=== PATIENT | female | born 1950 | race Caucasian/White ===

== ENCOUNTER 2024-03-07 16:43 | Outpatient (CLI) | payer MEDICARE, SELFPAY ==
[2024-03-07 17:20] LABS: Alanine Aminotransferase 23 U/L (6-35); Albumin Level 4.5 g/dL (3.5-5.1); Alkaline Phosphatase 81 U/L (38-126); Aspartate Amino Transferase 30 U/L (14-36)
[2024-03-07 17:54] LABS: Thyroid Stimulating Hormone Reflex 0.743 uIU/mL (0.465-4.68)
--- OUTSIDE RECORDS SUMMARY | 2024-03-09 03:22 | XMS_ITS | CONTINUITY OF CARE DOCUMENT ---
Author Name joselefty, joselefty Address Unknown Organization [facility] Address [address] [place] [address] Phone [phone] Care Team Providers Care Etl Data Architect Name Role Phone Mack ROBLES, Christiano Unavailable PRO PIERRE MD Unavailable PRO PIERRE MD Unavailable PROBLEMS Condition Status Date Provider Notes Snoring active Christiano Giron MD Shortness of breath (SOB) active Christiano berkowitz MD Obesity active Christiano Giron MD Hyperlipidemia active Christiano Giron MD Chest pain active Christiano Giron MD ENCOUNTERS Date Type Provider Location Encounter Diag nosis - In-person encounter Office Visit Christiano Giron MD [facility] - In-person encounter Office Visit Christiano Giron MD [facility] - In-person encounter Office Visit Christiano Giron MD [facility] - In-person encounter Office Visit Christiano Giron MD [facility] Snoring - In-person encounter Office Visit Christiano Giron MD [facility] - In-person encounter Office Visit Christiano Giron MD [facility] Shortness of breath (SOB) - In-person encounter Office Visit Christiano Giron MD [facility] - In-person encounter Office Visit Christiano Giron MD [facility] Chest painHyperlipidemiaObesity VITAL SIGNS Date Observation Value Provider Body Mass Index (Ratio) 37.67 kg/m2 Tyrell Giron MD blood pressure, cuff size regular [facility] blood pressure, diastolic 78 mm[Hg] [facility] blood pressure, systolic 134 mm[Hg] Johnathon ferrer pulse rate 74 /min [facility] y oxygen saturation, oximetry 99 % [facility] respiratory rate E&M 12 /min [facility] weight E&M 206 [lb_av] [facility] y height E&M 62 [in_i] [facility] Body Mass Index (Ratio) 37.13 kg/m2 Tyrell Giron MD blood pressure, diastolic 79 mm[Hg] An abram Camacho blood pressure, systolic 129 mm[Hg] Fatou Camacho oxygen saturation, oximetry 97 % Alexandra Camacho pulse rate 83 /min Alexandra Camacho weight E&M 203 [lb_av] Alexandra Camacho blood pressure, cuff size large An abram Camacho height E&M 62 [in_i] Alexandra Camacho Body Mass Index (Ratio) 38.41 kg/m2 Tyrell Giron MD blood pressure, cuff size regular Yolette Michael blood pressure, diastolic 68 mm[Hg] Yolette Michael blood pressure, systolic 135 mm[Hg] Bety Michael oxygen saturation, oximetry 96 % Terrence Michael respiratory rate E&M 18 /min Brynn Michael pulse rate 69 /min Terrence gaines weight E&M 210 [lb_av] Terrence gaines height E&M 62 [in_i] Terrence gaines Body Mass Index (Ratio) 38.77 kg/m2 Tyrell Giron MD blood pressure, diastolic 79 mm[Hg] Li nkLogic blood pressure, systolic 146 mm[Hg] Annabelle kLogic blood pressure, diastolic 79 mm[Hg] Ca therine Rohit blood pressure, systolic 146 mm[Hg] Cat herine [place] oxygen saturation, oximetry 93 % Eliza Rohit respiratory rate E&M 14 /min Catheri ne Rohit pulse rate 73 /min Eliza [place] weight E&M 212 [lb_av] Eliza [place] blood pressure, cuff size regular Ca therine [place] height E&M 62 [in_i] Eliza Rohit Body Mass Index (Ratio) 38.95 kg/m2 Tyrell Giron MD blood pressure, cuff size regular Sa ra Rosales blood pressure, diastolic 85 mm[Hg] Sa ra Rosales blood pressure, systolic 144 mm[Hg] Roman a Rosales oxygen saturation, oximetry 98 % Marly Rosales respiratory rate E&M 18 /min Marly Si ms pulse rate 85 /min Marly Rosales weight E&M 213 [lb_av] Marly Rosales height E&M 62 [in_i] Marly Rosales Body Mass Index (Ratio) 38.77 kg/m2 Tyrell Giron MD blood pressure, cuff size large Ke rri Kangnenfelder blood pressure, diastolic 70 mm[Hg] Sheldon rri Kangnenfelder blood pressure, systolic 130 mm[Hg] Paresh Del Rosarioelder oxygen saturation, oximetry 97 % Marie Barbour respiratory rate E&M 16 /min Marie guzmanelder pulse rate 79 /min Marie Luna lder weight E&M 212 [lb_av] Marie Del Rosarioe lder height E&M 62 [in_i] Marie Luna [facility] Body Mass Index (Ratio) 37.86 kg/m2 Tyrell Giron MD pulse rate 82 /min [facility] respiratory rate E&M 18 /min [facility] blood pressure, diastolic 78 mm[Hg] To [facility] blood pressure, systolic 123 mm[Hg] [facility] oxygen saturation, oximetry 97 % [facility] weight E&M 207 [lb_av] [facility] height E&M 62 [in_i] [facility] Body Mass Index (Ratio) 38.55 kg/m2 Tyrell Giron MD blood pressure, diastolic 89 mm[Hg] Alicia Staley blood pressure, systolic 165 mm[Hg] Ju Staley oxygen saturation, oximetry 98 % Ethan Staley respiratory rate E&M 18 /min Kanchan Staley pulse rate 77 /min Ethan suarez weight E&M 210.8 [lb_av] Ethan downing height E&M 62 [in_i] Ethan suarez ALLERGIES No Known Drug Allergies HISTORY OF MEDICATION USE Medication Status Instructions Dates Provider Indications Com ments trospium 20 mg tablet active Take 1 tablet by mouth once a day [facility] zolpidem 10 mg tablet active Take 1/2 tablet by mouth as needed Marly Rosales Mobic 15 mg tablet active 1 tablet by mouth once a day Marly Connie biotin unspecified unspecified active Take 1 capsule by mouth once a day [facility] vitamin d active Take 1 capsule by mouth once a day Marly Rosales asa completed Take 1 tablet to mouth once a day as directed - Radha Rodriguezmiglia [facility] zinc 50 mg 50 mg active Take 1 tablet by mouth once a day Marly Richmonds FUROSEMIDE 20 MG ORAL TABLET completed 1 tab once daily as needed - Marie Barbour MULTIVITAMINS ORAL CAPSULE active 1 tablet once a day Ethan Staley aspirin 81 mg tablet,delayed release (DR/EC) active 1 tablet by mouth once a day Ethan Staley atorvastatin 20 mg tablet active 1 tablet once a day Ethan Staley diclofenac potassium 50 mg tablet completed 1 tablet twice a day - [facility] SOCIAL HISTORY Date Observation Value Provider personal history of marijuana use no Radhajeremy Rodriguezmiglia [facility] drug use no Radha Ventimig piper [facility] alcohol use no Radha Ventimig piper [facility] smoking status Never smoker Radha Guerrero iglrosa [facility] social history E&M Marital Statu s: Maximo mcclelland: 1 O ccupation: Occupational health Smoking History: Monique acuna has never smoked. Christiano Giron MD social history revie wed E&M reviewed - no changes required Christiano Giron MD smoking status Never smoker Alexandra Camacho social history revie wed E&M reviewed - no changes required Christiano Giron MD social history E&M Marital Statu s: Maximo mcclelland: 1 O ccupation: Occupational health Smoking History: Monique acuna has never smoked. Christiano Giron MD social history revie wed E&M reviewed - no changes required Christiano Giron MD smoking status Never smoker Eliza tobin social history E&M Marital Statu s: Maximo mcclelland: 1 O ccupation: Occupational health Smoking History: P atidalia has never smoked. Christiano Giron MD social history revie wed E&M reviewed - no changes required Christiano Giron MD smoking status Never smoker Marie batista social history E&M Marital Statu s: Maximo mcclelland: 1 O ccupation: Occupational health Smoking History: P atidalia has never smoked. Christiano Giron MD social history revie wed E&M reviewed - no changes required Christiano Giron MD smoking status Never smoker Jolie Hughes social history E&M Marital Statu s: Maximo mcclelland: 1 O ccupation: Occupational health Smoking History: P atidalia has never smoked. 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 Christiano Giron MD [id number],SChristiano MD [id number],S,Negative slee p study Christiano Giron MD [id number],S,N ormal stress, ECHO and PFTs. U nremarkable sleep study. Christiano Giron MD [id number],B,Normal stress and ECHO Christiano Giron MD [id number],S, Christiano gonzalez MD [id number],S, Christiano gonzalez MD [id number],N,Home sleep st udy. Christiano Giron MD [id number],S,Stress test. Christiano Giron MD [id number],S,N eeds stress test and ECHO, home sleep study. Christiano Giron MD Cardiology:weight loss encourage d Radhajeremy Rojas [facility] Cardiology:remains o n statin therapy w ill update lipid panel H er updated medication list for this problem includes: Atorvastatin 20 Mg Tablet (Atorvastatin) ..... 1 tablet once a day Radhajeremy Rojas [facility] Cardiology:Only note d with moderate to heavy activity l ast echo 2021 showed normal EF with normal valvular abnormality Her updated medication list for this problem includes: Aspirin 81 Mg Tablet,delayed Release (dr/ec) (Aspirin) ..... 1 tablet by mouth once a day Radha Rojas [facility] Cardiology Christiano Giron MD Cardiology Christiano Giron MD Cardiology Christiano Giron MD Cardiology Christiano Giron MD Cardiology:Recommended weight lo ss. Christiano Giron MD Cardiology Christiano Giron MD Cardiology:Negative sleep study Christiano Giron MD Cardiology:Normal st ress, ECHO and PFTs. U nremarkable sleep study. Christiano Giron MD Cardiology:Normal stress and ECH O Christiano Giron MD Cardiology Christiano Giron MD Cardiology Christiano Giron MD Cardiology:Home sleep study. Star Giron MD Cardiology:Stress test. Christiano santizo MD Cardiology:Needs str ess test and ECHO, home sleep study. Christiano Giron MD Cardiology Follow up Christiano miguel MD Cardiology Follow up Christiano miguel MD Cardiology Follow up Christiano miguel MD Cardiology Follow up :Had Covid. Will check ECHO Christiano Giron MD Cardiology Christiano Giron MD Cardiology Christiano Giron MD Cardiology Christiano Giron MD Cardiology Christiano Giron MD Cardiology Christiano Giron MD Cardiology Christiano Giron MD Date Name HEMOGLOBIN A1c CBC (INCLUDES DIFF/P LT) LIPID PANEL BASIC METABOLIC PANE L W/EGFR Sleep Study Home DLCO - 79657 FRC - 53719 FVC - 20588 Stress Regadenoson Complete Echo Complete Echo Stress Regadenoson Complete Echo HISTORY OF PROCEDURES Procedure Date Procedure Name Provider Procedure Notes S tatus EKG Christiano Giron MD complete d Spirometry Christiano Giron MD complete d FVC / MVV - 94630 Christiano Giron MD c ompleted FRC - 49572 Christiano Giron MD complet ed SpO2 w/o 6min walk/titration Christiano Giron MD completed SVC - 07835 Christiano Giron MD complet ed DLCO - 53246 Christiano Giron MD comple maria de jesus NATAN Giron MD complete d NATAN Giron MD complete d NATAN Giron MD complete d
--- OUTSIDE RECORDS SUMMARY | 2024-03-09 03:22 | XMS_ITS | Continuity of Care Document ---
Author Organization [facility] Address [address] [place] [address] Phone Care Team Providers Care Farm Laborer Name Role Phone Conrad Blackburn MD Unavailable Unavailable Procedures Procedure Date MRI, LUMBAR SPINE W/O CONTRAST INJECT, ANESTHETIC AND/OR ST EROID, TRANSFORAMINAL EPIDURAL; C/T, SINGLE LEVEL SURGICAL TRAY LOW OSMOLAR CONTRAST (200 TO 299 MG IODI NE) INJ, DEXAMETHASONE SODUIM PHOSPHATE (DEC ADRON) 1MG Advance Directives Directive Yes / No Effective Date File Name No Information Encounters Encounter Description Practice Location Reason(s) For Visit Diagnoses Date Provider Providers Copied on Encounter [facility], [address], [place], [place], [address], tel:[phone] [facility] No Information Alexey Martines. [address], [place], [place], [id number], [place]. tel:[phone] Referring Provider: [address], [place], [address]. tel:[phone] [facility], [address], [place], [place], [id number], tel:[phone] [facility] No Information Jazmin Hernandez. [address], [place], [place], [id number], [place]. tel:[phone] Referring Provider: [address], [place], [address]. tel:[phone] Family History Family Member Type Diagnosis Age At Onset No Information Payers Payer name Insurance type Covered libertarian ID Authoriza tijen(s) MEDICARE MB [id number] AETNA [facility] [id number] Social History Type Description Quantity Date Captured Comments Sex Female Smoking Status No Information Chief Complaint And Reason For Visit No Information Reason For Referral Reason For Referral No Information History Of Present Illness Encounter Date Complaint History Of Prese nt Illness No Information Functional Status Date Functional Assessmen t No Information Instructions Date Instruction Additional Infor mation No Information Assessments Type Assessment Date No Information Patient Care Teams Name Effective Dates (start - stop) Status Members No Information
== END 2024-03-07 16:44 | disposition home or self-care (01) ==
LOC: ANHLAB 16:51
PROVIDERS: PCP Family Medicine; Visit Provider Family Medicine
DX: E05.90 Thyrotoxicosis, unspecified without thyrotoxic crisis or storm (principal); R19.7 Diarrhea, unspecified
CPT/HCPCS: 36415; 80076; 83519; 84443; 84480

== ENCOUNTER 2024-11-07 10:40 | Outpatient (CLI) | payer MEDICARE, SELFPAY ==
--- OUTSIDE RECORDS SUMMARY | 2024-11-07 11:32 | XMS_ITS | Encounter Summary ---
Author Organization [facility] Address [address] [place] [address] Care Team Providers Care Motor Grader Operator Name Role Phone Nanette Barker MD Primary Care Provider Leslie Aaron MD Primary Care Provider [phone] Christiano Giron MD Unavailable [phone] Demetris Palumbo MD Unavailable Encounter Details Date Type Department Care Team (Late st Contact Info) Description 05/15/2020 Lab Requisition [facility] [address] [place] [id number] Sy Gardner MD [address] [place], [place] [id number] Social History Tobacco Use Types Packs/Day Years Used Date Smoking Tobacco: Never Assessed Comments Unknown Sex and Gender Information Value Date Recorded Sex Assigned at Not on file Legal Sex Female 4:15 PM CDT Gender Identity Not on file Sexual Orientation Not on file documented as of this encounter Plan of Treatment Not on file documented as of this encounter Procedures Procedure Name Priority Date/Time Associated Diagnosis Comments DERMATOPATHOLOGY Routine 05/13/2020 3:33 AM CDT documented in this encounter Results * DERMATOPATHOLOGY (05/13/2020 3:33 AM CDT) Case Report Dermatopathology Report Case: [id number] Authorizing Provider: Sy Gardner MD Collected: 05/13/2020 03:33 AM Ordering Location: [facility] Received: 05/15/2020 07:57 AM Pathologist: Maria Elena Landin MD Specimen: Skin, left mid back 4:15 PM CDT DERMATOPATHOLOGY LABORATORY Final Diagnosis Specimen A. 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 Path#[id number] 4:15 PM CDT DERMATOPATHOLOGY LABORATORY Gross Description Specimen A: Received is one formalin filled container labeled with the patient's name and designated left mid back. The specimen consists of a shave biopsy measuring 10x6x2 mm. Jar 0. 4:15 PM CDT DERMATOPATHOLOGY LABORATORY Microscopic Description Specimen A. SKIN, left mid back: This is a compound nevus. There is melanin pigment in the stratum corneum. There is architectural disorder characterized by a lentiginous proliferation of melanocytes between irregular nests of cells along the dermal-epidermal junction, highlighted by MART-1/Melan-A immunohistochemical staining. There is underlying fibroplasia of the papillary dermis. The intradermal component is bland appearance and matures with depth. There is focal dermal fibrosis. Sections show abundant melanin within melanophages around the superficial vascular plexus. (Compound Vamsi's Nevus or Compound Dysplastic Nevus) COMMENT: This case was also reviewed by Dr. Nalini Sauer, who agrees. 4:15 PM CDT DERMATOPATHOLOGY LABORATORY Disclaimer An external and internal positive and negative controls are appropriate for the histochemical, immunohistochemical and immunofluorescence stain(s) in this case (if any), except where stated explicitly. The performance characteristics of the stain(s) cited in this report were developed and its performance characteristic determined by the Dermatopathology Laboratory at [facility], directed by Dr. Christopher Bolivar. These tests need not be, and therefore are not, approved by the [place] Food and Drug Administration. The tests are used for clinical purposes. Billing Codes Specimen Charges Stain Charges 63896 1 45644 1 1 4:15 PM CDT DERMATOPATHOLOGY LABORATORY Embedded Images 1 4:15 PM CDT DERMATOPATHOLOGY LABORATORY Pathology/Cytolo gy TISSUE SPECIMEN FROM SKIN / Unknown 05/13/2020 3:33 AM CDT 05/15/2020 7:57 AM CDT us Sy Gardner MD LAB - PATHOLOGY/CYTOLOGY ORDER JANETTE Final Result DERMATOPATHOLOGY LABORATORY [facility] - Department of Dermatology [address] [phone] documented in this encounter Visit Diagnoses Not on filedocumented in this encounter Care Teams Motor Grader Operator Relationship Specialty Start Date End Date Nanette Barker MD [address] [facility] [address] [place] [phone] PCP - General Colon and Rectal Surgery 04/27/2207/29 Leslie Aaron MD [address] [place] [phone] PCP - General Family Medicine 07/30/22 Christiano Giron MD [address] [place] [address] Cardiology 07/30/22 [place] [address] [address] Surgeon Orthopedic Surgery 02/24/23 documented as of this encounter
--- OUTSIDE RECORDS SUMMARY | 2024-11-07 11:32 | XMS_ITS | Clinical Summary ---
Author Organization [facility] Address [address] [place] [address] Care Team Providers Care Director Smb Sales Name Role Phone Leslie Aaron MD Primary Care Provider Christiano Giron MD Unavailable [phone] Demetris Palumbo MD Unavailable [phone] Source Comments [facility],non-owned Affiliates and Associated Physician Practices is amultiple site organization consisting of ambulatory clinics and hospital sitesin [place], [place], [place] and [place]. This disclosure is being madepursuant to the Care Everywhere program and may not contain all information available regarding this patient. Last updated 17.[facility] Allergies No known active allergies Medications * Be aware that medications may not be up to date on this document. Alwaysverify current medications with the patient. atorvastatin (Lipitor) 20 MG tabletIndicatio ns:Hyperlipidem ia Take 1 (one) tablet by mouth at bedtime Reasons: High Amount of Fats in the Blood 3 Active meloxicam (Mobic) 15 MG tabletIndicatio ns:pain Take 1 (one) tablet by mouth once daily Reasons: pain 3 Active trospium (Sanctura) 20 MG tablet Take 1 (one) tablet by mouth at bedtime 3 Active zolpidem (Ambien) 10 MG tablet Take 1 (one) tablet by mouth nightly as needed 2 Active vitamin D3 (Cholecaciferol ) 125 MCG (5000 UT) Take 1 (one) tablet by mouth at bedtime Active BIOTIN 5000 PO Take by mouth at bedtime For hair and nails Active Multiple Vitamin (MULTIVITAMIN ADULT PO) Take by mouth at bedtime Active Zinc 50 MG tablet Take 1 (one) tablet by mouth at bedtime GUMMIES Active traMADol (Ultram) 50 MG tabletIndicatio ns:Acute post-operative pain Take 1 (one) tablet by mouth every 6 hours as needed for Pain 28 tablet 1 4 Active Biotin 1 MG biotin unspecified unspecified Active diclofenac potassium (Cataflam) 50 MG tablet diclofenac potassium 50 mg tablet Active amoxicillin (Amoxil) 500 MG capsule Take 4 (four) capsules by mouth 1 Hour prior to Dental Appointment 4 capsule 3 4 Active Active Problems Problem Noted Date Diagnosed Date Overactive bladder 02/20/2023 03/10/2023 Primary osteoarthritis of both knees 04/28/2022 Snoring 03/24/2021 Shortness of breath 04/10/2020 Hyperlipidemia 11/21/2018 Obesity 11/21/2018 Encounters Date Type Department Care Team Description 08/08/2024 9:40 AM CDT Office Visit [facility] [address], [address] [place] [id number] Laura Ospina MD Chronic left shoulder pain (Primary Dx); Complete tear of left rotator cuff, unspecified whether traumatic; Nontraumatic rupture of left long head biceps tendon 08/08/2024 9:30 AM CDT Ancillary Procedure [facility] Orthopedics - Radiology [id number] [place] [id number] Laura Ospina MD Chronic left shoulder pain from Last 3 Months Family History Medical History Relation Name Comments Diabetes - Type 2 Mother Relation Name Status Comments Mother Social History Tobacco Use Types Packs/Day Years Used Date Smoking Tobacco: Never Smokeless Tobacco: Never Tobacco Cessation:Counseling Given: Not Answered Alcohol Use Standard Drinks/Week Comments Yes 0 (1 standard drink = 0.6 oz pur e alcohol) rarely OASIS D0700: Social Isolation Answer Da te Recorded Frequency of experiencing loneliness or isolatio n Never 01/28/2023 OASIS A1250: Transportation Answer Date Recorded Lack of Transportation (Medical) No 01/28/2023 Lack of Transportation (Non-Medical) No 01/28/2023 Patient Unable or Declines to Respond No 01/28/2023 OASIS B1300: Health Literacy Answer Cas e Recorded Frequency of needing help to read materials from doctor or pharmacy Never 01/28/2023 AUDIT-C Answer Date Recorded Q1: How often do you have a drink containing alcohol? Monthly or less 01/12/2023 Q2: How many drinks containi ng alcohol do you have on a typical day when you are drinking? Patient does not drink Q3: How often do you have si x or more drinks on one occasion? Never 01/12/2023 Overall Financial Resource Strain (CARDIA) Answe r Date Recorded How hard is it for you to pa y for the very basics like food, housing, medical care, and heating? Not hard at all 01/13/2023 PHQ-2 Answer Date Recorded Patient Health Questionnaire-2 Score 1 08/04/2024 [facility] - Occupational Stress Questionnaire Answer Date Recorded Do you feel stress - tense, restless, nervous, or anxious, or unable to sleep at night because your mind is troubled all the time - these days? Not at all 01/13/2023 Hunger Vital Sign Answer Date Recorded Within the past 12 months, y ou worried that your food would run out before you got the money to buy more. Never true 01/14/20 23 Within the past 12 months, t he food you bought just didn't last and you didn't have money to get more. Never true 01/13/2023 PRAPARE - Transportation Answer Date Re corded In the past 12 months, has l ack of transportation kept you from medical appointments or from getting medications? No 12/17 In the past 12 months, has l ack of transportation kept you from meetings, work, or from getting things needed for daily living? No 01/13/2023 Housing Stability Vital Sign Answer Cas e Recorded In the last 12 months, was t here a time when you were not able to pay the mortgage or rent on time? No 01/13/2023 In the last 12 months, how many places have you lived? 1 01/13/2023 In the last 12 months, was t here a time when you did not have a steady place to sleep or slept in a penitentiary (including now)? No 01/13/2023 Comments Unknown Sex and Gender Information Value Date Recorded Sex Assigned at Not on file Legal Sex Female 4:15 PM CDT Gender Identity Not on file Sexual Orientation Not on file Last Filed Vital Signs Vital Sign Reading Time Taken Comments Blood Pressure 111/81 03/02/2023 3:09 PM FINANCE INTERN Pulse 82 03/02/2023 3:09 PM FINANCE INTERN Temperature 36.1 C (97 F) 03/02/2023 2:48 PM FINANCE INTERN Respiratory Rate 16 03/02/2023 3:09 PM FINANCE INTERN Oxygen Saturation 96% 03/02/2023 3:09 PM FINANCE INTERN Inhaled Oxygen Concentration - - Weight 91.2 kg (201 lb) 03/02/2023 10:32 AM FINANCE INTERN Height 160 cm (5' 3) 03/02/2023 10:[address] ated per pt Body Mass Index 35.61 03/02/2023 10:32 AM FINANCE INTERN Plan of Treatment Health Maintenance Due Date Last Done Comments BONE DENSITY TESTING 1950 COLOGUARD (AGES 45-75) - COL ON CA SCREENING 1950 COLON MONITORING 1950 COLONOSCOPY - COLON CA SCREENING 1950 CT COLONOGRAPHY - COLON CA SCREENING 1950 Colorectal Cancer Screening 1950 FIT - COLON CA SCREENING 1950 FLEX SIG - COLON CA SCREENING 1950 MAMMOGRAM 1950 MEDICARE AWV 12 MONTHS 1950 HEPATITIS C SCREENING 09/15/1969 DTAP/TDAP/TD VACCINES (1 - Tdap) 09/19/1970 PNEUMOCOCCAL VACCINE 50+ (1 of 1 - PCV) 09/19/2001 ZOSTER VACCINE (1 of 2) 09/19/2001 COVID-19 VACCINE (1 - 2023-2 5 season) 2024 INFLUENZA VACCINE (#1) 2024 Respiratory Syncytial Virus (RSV) Vaccine Pt: or over 60 yrs (1 - 1-dose 75+ series) 09/19/2026 DEPRESSION SCREENING Completed 08/08/2024 HEPATITIS B VACCINE Aged Out No longe r eligible based on patient's age to complete this topic HIB VACCINE Aged Out No longer eligi ble based on patient's age to complete this topic HPV VACCINE Aged Out No longer eligi ble based on patient's age to complete this topic MENINGOCOCCAL (Group B) VACC INE SHARED DECISION-MAKING Aged Out No longer eligibl e based on patient's age to complete this topic MENINGOCOCCAL GROUPS A/C/Y/W VACCINE Aged Out No longer eligible b ased on patient's age to complete this topic Medical Devices Implanted Type Area Transcription Specialist Device Identifier Shelf Expiration Date Model / Serial / Lot Cmnt Bone Plc R 40gm Grn Implanted:Qty: 1 on 09/08/2022 by Demetris Palumbo MD at [facility] Right: Knee [employer] 01/13/2025 [id number] / / [id number] Cmpnt Fem Kn Rt Cr Cmnt Prm Vngrd Intlk 65mm Implanted:Qty: 1 on 09/08/2022 by Demetris Palumbo MD at [facility] Right: Knee [employer] 05/15/2032 [id number] / / [id number] Cmpnt Ptlr Std 28mm 3 Pg Kn Ser A Implanted:Qty: 1 on 09/08/2022 by Demetris Palumbo MD at [facility] Right: Knee [employer] 03/17/2027 [id number] / / [id number] Tray Tib 67mm Kn Cocr I Beam Implanted:Qty: 1 on 09/08/2022 by Demetris Palumbo MD at [facility] Right: Knee [employer] 06/19/2032 [id number] / / [id number] Brng [id number] Vngrd E1 Kn Ant Stab Tib Implanted:Qty: 1 on 09/08/2022 by Demetris Palumbo MD at [facility] Right: Knee [employer] 03/18/2027 [id number] / / [id number] Brng [id number] Vngrd Arcm Kn Ant Stab Implanted:Qty: 1 on 01/12/2023 by Demetris Palumbo MD at [facility] Left: Knee [employer] 10/29/2027 [id number] / / [id number] Cmnt Bone Plc R 40gm Grn Implanted:Qty: 1 on 01/12/2023 by Demetris Palumbo MD at [facility] Left: Knee [employer] 04/13/2025 [id number] / / [id number] Tray Tib 71mm Kn Cocr I Beam Implanted:Qty: 1 on 01/12/2023 by Demetris Palumbo MD at [facility] Left: Knee [employer] 10/21/2032 [id number] / / [id number] Cmpnt Ptlr Std 28mm 3 Pg Kn Ser A Implanted:Qty: 1 on 01/12/2023 by Demetris Palumbo MD at [facility] Left: Knee [employer] 10/28/2027 [id number] / / [id number] Cmpnt Fem Kn Lt Cr Cmnt Prm Vngrd Intlk 62.5 Mm Implanted:Qty: 1 on 01/12/2023 by Demetris Palumbo MD at [facility] Left: Knee [employer] 06/08/2032 [id number] / / [id number] Procedures Procedure Name Priority Date/Time Associated Diagnosis Comments XR SHOULDER LEFT 2VW OR MORE Routine 08/08/2024 9:33 AM CDT Chronic left shoulder pain from Last 3 Months Results * XR Shoulder Left 2Vw or More (08/08/2024 9:33 AM CDT) Narrative [facility] [address] - 08/08/2024 9:34 AM CDT Please see progress note in Epic for results. us Laura Ospina MD DIAGNOSTIC IMAGING ORDERABL ES Final Result [facility] [address] from Last 3 Months Insurance [employer] T MEDICARE Advance Directives * Full Code (Latest Code Status on File) Date Activated Date Inactivated Comments 01/12/2023 12:35 PM 01/13/2023 2:52 PM * Full Code Date Activated Date Inactivated Comments 09/08/2022 10:24 AM 09/09/2022 12:50 PM Care Teams Director Smb Sales Relationship Specialty Start Date End Date Leslie Aaron MD [address] [place] [address] [place] [phone] PCP - General Family Medicine 07/30/22 Christiano Giron MD [address] [place] [address] Cardiology 07/30/22 [place] [address] [address] Surgeon Orthopedic Surgery 02/24/23
--- OUTSIDE RECORDS SUMMARY | 2024-11-07 11:32 | XMS_ITS | Clinical Summary ---
Author Organization [facility] Address [address] [place] [address] Care Team Providers Care Radio Board Operator Announcer Name Role Phone Unavailable Primary Care Provider Unavailabl e Social History Tobacco Use Types Packs/Day Years Used Date Smoking Tobacco: Never Assessed Comments Unknown Sex and Gender Information Value Date Recorded Sex Assigned at Not on file Legal Sex Female 3:27 PM CDT Gender Identity Not on file Sexual Orientation Not on file Plan of Treatment Health Maintenance Due Date Last Done Comments Colorectal Cancer Screening Colonoscopy (10 Years) 1950 Hepatitis C 09/19/1969 DTaP, Tdap and Td Vaccines ( 1 - Tdap) 09/19/1970 Mammogram Screening 1991 Pneumococcal Vaccine: 50+ Ye ars (1 of 1 - PCV) 09/19/2001 Zoster Vaccines (1 of 2) 09/19/2001 Annual Medicare Wellness Visit 09/19/2016 Dexa Scan (General) 09/19/2016 COVID-19 Vaccine ( - 2023-2 5 season) 2024 RSV Immunization or 60+ Years (1 - 1-dose 75+ series) 09/19/2026 Meningococcal B Vaccine Aged Out No l onger eligible based on patient's age to complete this topic Meningococcal Vaccine Aged Out No nicci rc eligible based on patient's age to complete this topic RSV Immunizations Under 20 Months Aged Out No longer eligible based on patient's age to complete this topic Insurance MEDICARE
[2024-11-07 19:02] LABS: Alanine Aminotransferase 22 U/L (6-35); Albumin Level 4.6 g/dL (3.5-5.1); Alkaline Phosphatase 81 U/L (38-126); Anion Gap 8 mmol/L (4-12); Aspartate Amino Transferase 43 U/L (14-36); Bilirubin,Total 1.4 mg/dL (0.2-1.3); Blood Urea Nitrogen 19 mg/dL (7-17); Calcium 9.6 mg/dL (8.4-10.2); Carbon Dioxide 29 mmol/L (22-30); Chloride 101 mmol/L (98-107); Cholesterol 140 mg/dL (0-200); Estimated Glomerular Filt Rate > 60; Glucose 102 mg/dL (65-110); HDL Direct 63 mg/dL; Potassium 4.4 mmol/L (3.4-5.0); Sodium 138 mmol/L (137-145); Total Protein 7.6 g/dL (6.3-8.2); Triglycerides 63 mg/dL (<150)
[2024-11-07 19:28] LABS: Hematocrit 41.9 % (37.0-47.0); Hemoglobin 13.8 g/dL (12.0-15.0); Immature Granulocyte Percent A 0.3 % (0-0.5); Lymphocytes Absolute Auto 1.04 K/mm3 (0.9-3.2); Mean Corpuscular HGB Conc 32.9 g/dl (32-36); Mean Corpuscular Hemoglobin 31.4 pg (26-34); Mean Corpuscular Volume 95.4 fl (80-100); Nucleated Red Blood Cells Absolute Auto 0.000 K/mm3 (0.0-0.012); Nucleated Red Blood Cells Perc 0.0 % (0.0-0.2); Platelet Count Result 206 k/mm3 (150-375); Red Blood Count 4.39 M/mm3 (4.2-5.4); White Blood Count 6.2 K/mm3 (4.5-10.0)
[2024-11-07 19:51] LABS: Hemoglobin A1C 6.3 % (<5.7)
[2024-11-07 20:00] LABS: Thyroid Stimulating Hormone Reflex 0.113 uIU/mL (0.465-4.68)
[2024-11-07 23:08] LABS: Free T4 Free Thyroxine Reflex 1.10 ng/dL (0.78-2.19)
[2024-11-08 00:01] LABS: Total Triiodothyronine (T3) 0.96 NG/ML (0.82-1.58)
== END 2024-11-07 10:41 | disposition home or self-care (01) ==
LOC: ANHGOSHLAB 10:41
PROVIDERS: PCP Family Medicine; Visit Provider Family Medicine
DX: E03.9 Hypothyroidism, unspecified (principal); R73.03 Prediabetes; E55.9 Vitamin D deficiency, unspecified; R53.83 Other fatigue; E78.2 Mixed hyperlipidemia
CPT/HCPCS: 36415; 80053; 80061; 82306; 83036; 84439; 84443; 84480; 85025